=== PATIENT | male | born 1940 | race Caucasian/White ===

== ENCOUNTER → 2021-12-20 | Outpatient (CLI) | payer MEDICARE ==
[~2021-12-20] MED LIST: B COMPLEX WITH1 EAC1 PO; BALANCED B-CO400 MCG PO; COLCHICINE 0.60.6 MG PO; COUMADIN3 MG PO; FENOFIBRATE48 MG PO; LEXAPRO20 MG PO; LIPITOR TAB 2020 MG PO; LOW DOSE ASPIRI81 MG PO; METAFOLBIC TAB1 EACH PO; NORVASC 5 MG TAB5 MG PO; TOPROL XL 25 MG25 MG PO; ULORIC 40 MG TA40 MG PO
== END ==
LOC: EXRD 12-13 10:45
DX: R94.6 Abnormal results of thyroid function studies (principal); E04.2 Nontoxic multinodular goiter
CPT/HCPCS: 76536

== ENCOUNTER → 2022-04-06 | Outpatient (CLI) | payer MEDICARE | LOC: KOH-I 12:30 | DX: E03.8 Other specified hypothyroidism (principal); E04.2 Nontoxic multinodular goiter | CPT/HCPCS: 76536 ==